=== PATIENT | male | born 1955 | race Caucasian/White ===

== ENCOUNTER → 2023-08-15 06:39 | Day surgery (SDC) | payer MEDICARE, OTHER, SELFPAY | LOC: GI 06:39 | PROVIDERS: ATTENDING PHYSICIAN Specialist; FAMILY PHYSICIAN Family Medicine | DX: K29.50 Unspecified chronic gastritis without bleeding (principal); K22.70 Barrett's esophagus without dysplasia; K22.89 Other specified disease of esophagus; K31.89 Other diseases of stomach and duodenum; K57.10 Diverticulosis of small intestine without perforation or abscess without bleeding; Z83.79 Family history of other diseases of the digestive system; R12 Heartburn; R93.3 Abnormal findings on diagnostic imaging of other parts of digestive tract | CPT/HCPCS: 43239; 88305; 88342 ==